=== PATIENT | male | born 1955 | race Caucasian/White ===

== ENCOUNTER 2016-10-03 03:48 | Emergency (ER) | payer OTHER, BC ==
[~2016-10-03] VITALS: Ht 167.6 cm; Wt 72.6 kg
--- NOTE | ~2016-10-03 | EKG ---
[address] [address] ELECTROCARDIOGRAM REPORT Name: JONAH UPTON Room #: [facility]..#: [id number] Admission: Attend Phys: Discharge: Date of : 53 Report #: [id number] THIS REPORT FOR: //name// [facility] ED Test Date: 2016-10-03 Test Time: 03:56:39 Pat Name: JONAH UPTON Department: Room: Gender: M Gastroenterologist: ANTONIO : 1955 Requested By: Sheree Banda Order Number: [id number] MD: Measurements Intervals [place] Rate: 57 P: 44 WV: 173 QRS: -55 QRSD: 148 T: 11 QT: 459 QTc: 447 Interpretive Statements Sinus rhythm Ventricular premature complex Right bundle branch block Compared to ECG 05/27/2016 14:00:31 No significant changes [email or web address] By: 5 5 Epiphany MD Marcie /EPI
[~2016-10-03 03:48] MED LIST: AMBIEN 10 MG TA10 MG PO; AMBIEN 5 MG TABL5 M1 PO; AMITRIPTYLINE H25 M2 PO; AMLODIPINE BESYL5 MG PO; BISACODYL SUPP10 MG RECTAL; CELEBREX 200 M200 M1 PO; COLACE100 MG PO; COUMADIN 2.5MG2.5 M1 PO; COUMADIN 4 MG TA4 M1 PO; COUMADIN 5 MG TA5 M1 PO; COUMADIN5 MG PO; COUMADIN6 MG PO; DILAUDID 2 MG TA2 MG; DILAUDID 4 MG TA4 M1 PO; ENOXAPARIN30 MG/0.1 SUBQ; ENOXAPARIN80 MG/0.1 SUBQ; HYDROCODONE-APA1 TA1 PO; KEPPRA 500 MG500 M1 PO; KEPPRA1000 MG PO; LEVETIRACETAM1000 MG PO; LIDODERM 5%1 PATC1 TRANSDERM; LIPITOR10 MG PO; MAG-AL PLUS SUS30 ML PO; MEVACOR 20 MG T20 MG PO; MIRALAX17 GM PO; NEURONTIN 300300 M1 PO; OXYCODONE HCL15 MG PO; OXYCODONE-APAP1 EAC6 PO; OXYCONTIN60 MG PO; PRAVACHOL40 MG PO; REGLAN 10 MG TA10 MG PO; SENOKOT-S1 TA1 PO; TRAZODONE HCL50 MG PO; TYLENOL325 MG PO; XANAX 0.25 MG0.25 MG; XANAX XR1 MG PO; XANAX1 MG PO
[2016-10-03] MEDS ORDERED: LIDOPIN28 GM (04:00)
[2016-10-03] MEDS ORDERED: SENNA8.6 MG PO (04:03)
[2016-10-03] MEDS ORDERED: FENTANYL 1100 MCG/HR TOP (04:06)
[2016-10-03] MEDS ORDERED: CELEXA20 MG PO (04:07)
[2016-10-03] MEDS ORDERED: PERCOCET 10-321 EAC1 (04:09)
[2016-10-03 04:12] LABS: ABSOLUTE NEUTROPHILS 4.1 thou/uL (1.4-8.2); BASOPHILS 0.8 % (0.0-2.0); EOSINOPHILS 2.5 % (0.0-3.0); HEMATOCRIT 38.3 % (42.0-52.0); HEMOGLOBIN 12.9 gm/dL (14.0-18.0); LYMPHOCYTES 34.4 % (24.0-44.0); MCH 28.8 pg (26.0-34.0); MCHC 33.8 g/dL (28.0-37.0); MCV 85.4 fL (80.0-100.0); MONOCYTES 7.1 % (1.0-8.0); PLATELET COUNT 208 thou/uL (150-400); POLYS 55.2 % (36.0-66.0); RBC 4.49 mil/uL (4.50-6.00); WBC 7.5 thou/uL (4.0-11.0)
[2016-10-03 04:15] LABS: MANUAL DIFF NO
[2016-10-03 04:25] LABS: APTT 30.1 Seconds (24.5-32.8); INR 2.1; PROTIME 21.3 Seconds (9.3-11.4)
[2016-10-03 04:38] LABS: ALBUMIN 3.8 g/dL (3.4-5.0); ALKALINE PHOSPHATASE 70 U/L (46-116); ANION GAP 9 mmol/L (7-16); BUN 21 mg/dL (7-18); CALCIUM 9.5 mg/dL (8.5-10.1); CHLORIDE 102 mmol/L (98-107); CO2 28 mmol/L (21-32); GLUCOSE 97 mg/dL (70-99); NT-PRO BRAIN NAT PEPTIDE 391 pg/mL (<300); POTASSIUM 4.1 mmol/L (3.5-5.1); SGOT 21 U/L (15-37); SGPT 17 U/L (30-65); SODIUM 139 mmol/L (136-145); TOTAL BILIRUBIN 0.5 mg/dL (<0.1-1.0); TOTAL PROTEIN 7.4 g/dL (6.4-8.2); TROPONIN-I < 0.04 ng/mL (<0.04-0.07)
== END 2016-10-03 05:32 ==
LOC: ER 03:48
PROVIDERS: Emergency Medicine
DX: R00.1 Bradycardia, unspecified (principal); Z86.73 Personal history of transient ischemic attack (TIA), and cerebral infarction without residual deficits; I10 Essential (primary) hypertension; F31.9 Bipolar disorder, unspecified; F41.9 Anxiety disorder, unspecified; Z95.2 Presence of prosthetic heart valve; F17.210 Nicotine dependence, cigarettes, uncomplicated

== ENCOUNTER 2016-11-28 16:25 | Inpatient (IN) | payer OTHER, BC ==
[~2016-11-28] VITALS: Ht 167.6 cm; Wt 69.9 kg
--- NOTE | ~2016-11-28 | 2DMMODE ---
[facility] [address] [place] [address] 2 D/M-MODE ECHOCARDIOGRAM Name: JONAH UPTON Room #: 463-P [facility] IN ..#: [id number] Admission: 11/28/16 Attend Phys: Rob Holcomb, Discharge: Date of : 53 Date of Service: 11/30/16 0733 Report #: [id number] THIS REPORT FOR: //name// APPROVED REPORT Study performed: 11/29/2016 12:01:29 EXAM: Comprehensive 2D, Doppler, and color-flow Echocardiogram Patient Location: Bedside Room #: 463 Blood Pressure: 141/75 mmHg HR: 64 bpm Rhythm: NSR Other Information Study Quality: Adequate Technically limited study due to chest wall deformity. Indications Mitral Valve Disease CVA/TIA Hypertension/HDD Echo Enhancing Agent Indication: Rule out Shunt Agent/Amount Used: Agitated Saline 7 cc 2D Dimensions LVEF(%): 68.93 (>50%) IVSd: 10.22 (7-11mm) LVOT Diam: 20.36 (18-24mm) LVDd: 59.29 mm PWd: 11.57 (7-11mm) LVDs: 36.00 (25-40mm) Aortic Root: 31.25 mm IVC: 16.00 mm Acreo's LVEF: 68.93 % Aortic Valve AoV Peak Darshan.: 1.25 m/s AO Peak Gr.: 6.20 mmHg LVOT Max P.81 mmHg LVOT Max V: 0.67 m/s LEANNE Vmax: 1.76 cm2 [facility] [address] [address] 2 D/M-MODE ECHOCARDIOGRAM Name: JOANH FAGAN Room #: 463-P [facility] SYSTEM#: [id number] Admission: 11/28/16 Attend Phys: Rob Holcomb, Discharge: Date of : 53 Date of Service: 11/30/16 0733 Report #: [id number] Mitral Valve MV Peak Gr.: 7.74 mmHg MV Mean Gr.: 2.38 mmHg E/A Ratio: 0.5 MV Decel. Time: 351.89 ms MV E Max Darshan.: 0.71 m/s MV A Darshan.: 1.38 m/s MV Max Darshan.: 1.39 m/s MV Mean Darshan.: 0.70 m/s MV VTI: 424.63 mm MV PHT: 102.05 ms IVRT: 184.54 ms Pulmonary Valve PV Peak Darshan.: 0.87 m/s PV Peak Gr.: 3.02 mmHg Tricuspid Valve TR Peak Darshan.: 2.96 m/s RAP Estimate: 5.00 mmHg TR Peak Gr.: 35.14 mmHg RVSP: 40.00 mmHg Left Ventricle Left ventricle is at the upper limits of normal. There is normal LV segmental wall motion. There is normal left ventricular wall thickness. The left ventricular systolic function is normal. LVEF is 55-60%. Unable to assess Right Ventricle The right ventricle is normal size. The right ventricular systolic function is normal. Atria The left atrium size is dilated. Interatrial septum is intact without evidence of ASD or PFO. The right atrium size is normal. Aortic Valve Aortic valve is calcified. No aortic regurgitation. There is no aortic valvular stenosis. Mitral Valve There is a Medtronic 33mm mechanical mitral valve prosthesis. Trace mitral regurgitation. No evidence of mitral valve stenosis. Tricuspid Valve The tricuspid valve is normal in structure. There is trace to mild tricuspid regurgitation. The right atrial pressure is estimated at [address] [place] [address] 2 D/M-MODE ECHOCARDIOGRAM Name: JONAH UPTON Room #: 463-P [facility] IN ..#: [id number] Admission: 11/28/16 Attend Phys: Rob Holcomb, Discharge: Date of : 53 Date of Service: 11/30/16 0733 Report #: [id number]. There is mild pulmonary hypertension. The estimated PAP was 40 mmHg. Pulmonic Valve The pulmonary valve is normal in structure. There is no pulmonic valvular regurgitation. Great Vessels The aortic root is normal in size. Ascending aorta is not well visualized. IVC is normal in size and collapses >50% with inspiration. Pericardium There is no pericardial effusion. <Conclusion> The left ventricular systolic function is normal. There is normal LV segmental wall motion. LVEF 55-60%. The left atrium size is dilated. No shunting by contrast bubble injection. Aortic vavle mildly calcified, not stenotic, no aortic regurgitation. There is a Medtronic 33mm mechanical mitral valve prosthesis. No evidence of mitral valve stenosis, trace mitral regurgitation. Pulmonary artery pressure of 40mmHg There is no pericardial effusion. <ELECTRONICALLY SIGNED> By: Filemon Freedman MD, FACC 11/30/16732 2 2 Filemon Freedman MD, FACC /INF
--- NOTE | ~2016-11-28 | EKG ---
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 : 1955 Requested By: Dagoberto Narvaez Order Number: [id number] MD: Jose Strauss Measurements Intervals [place] Rate: 67 P: 43 [place]: 57 QRS: -29 QRSD: 156 T: -1 QT: 439 QTc: 464 Interpretive Statements Sinus rhythm Right bundle branch block Anteroseptal infarct, age indeterminate Artifact in lead(s) I,II,III,aVR,aVL,V2 and baseline wander in lead(s) V2 Compared to ECG 10/03/2016 03:56:39 Electronically Signed On 11-29-2016 8:08:35 CDT by Jose Strauss [email or web address] <ELECTRONICALLY SIGNED> By: Jose Strauss MD 11/29/16 0808 44 44 Jose Strauss MD /EPI
--- NOTE | ~2016-11-28 | H ---
[facility] [place] [address] HISTORY AND PHYSICAL Name: JONAH UPTON Room #: 463-P [facility] IN M.R.#: [id number] Admission: 11/28/16 Attend Phys: Rob Holcomb MD Discharge: 11/30/16 Date of : 53 Report #: [id number] THIS REPORT FOR: //name// CC: Rob Holcomb DATE OF SERVICE: 11/29/2016 CHIEF COMPLAINT: Left-sided weakness. HISTORY OF PRESENT ILLNESS: The patient is a 61-year-old male with prior severe right-sided hemiplegia from a stroke who presented to the ER with some difficulty with using his left side at this time. He had also had some slurring of speech per the 's report. He usually uses a walker and he has been unable to ambulate with it. He is communicative this morning, says that he had a fall because he felt very weak on that left side. He is actually feeling much better now with return to his baseline of symptoms. PAST MEDICAL HISTORY: Significant for CVA with right-sided hemiplegia in 2005; prosthetic valve replacement in the ; prior seizure, last one in 2012; hypertension; insomnia; degenerative joint disease; bipolar disorder with anxiety; aphasia; multiple TIAs since then. MEDICATIONS: Include Ambien 10 mg at bedtime, Coumadin 4.5 mg a day, gabapentin 300 mg t.i.d., Lidoderm ointment, senna daily, fentanyl patch 25 mcg q. 3 days, Celexa 20 mg a day, Percocet 10/325 q. 4 p.r.n., alprazolam 0.5 mg b.i.d., levetiracetam 1000 mg b.i.d. ALLERGIES: No known drug allergies. SOCIAL HISTORY: He is a prior smoker, not current. No alcohol, no recreational drugs. He lives with his independently. REVIEW OF SYSTEMS: CONSTITUTIONAL: No fever or chills. HEENT: No headaches or visual changes. CHEST: No chest pain, tightness in the chest, shortness of breath, cough or sputum production. GASTROINTESTINAL: No nausea, vomiting, diarrhea or constipation. GENITOURINARY: No burning or frequency. EXTREMITIES: He has a chronic joint pain, nothing acute. No joint swelling. SKIN: No rashes or wounds. NEUROLOGIC: No visual changes. He does have an episode of left-sided weakness that seems to have resolved. Numbness was associated with that as well. PHYSICAL EXAMINATION: VITAL SIGNS: In the ER, his vital signs, blood pressure was 172/117. It has [address] [address] HISTORY AND PHYSICAL Name: JONAH UPTON Room #: 463-P [facility] IN M.R.#: [id number] Admission: 11/28/16 Attend Phys: Rob Holcomb MD Discharge: 11/30/16 Date of : 53 Report #: [id number] improved significantly since then. His pulse is 77. His respiratory rate is 13. His O2 saturation is 94% on room air. His weight 154 pounds. GENERAL: The patient is a very pleasant happy gentleman. He is in no distress this morning. He reports he feels back to normal. His mucous membranes are moist. NECK: Supple, without adenopathy, thyromegaly or bruits. CHEST: Clear to auscultation. CARDIOVASCULAR: Regular rhythm without murmur. ABDOMEN: Soft, nondistended, nontender, no masses. Bowel sounds are active. EXTREMITIES: There is no edema. He does have a brace that he uses on the right leg. He is not wearing it, currently in bed. He has previous right-sided weakness with 3/5 strength is equal and he is 5/5 in arm and leg. Sensory is equal on the left and decreased on the right. Pulses are intact bilaterally. SKIN: Turgor is intact. There are no wounds or bruising. DIAGNOSTIC DATA: EKG shows sinus rhythm, rate of 67, with right bundle branch block. No acute ST segment changes. LABORATORY DATA: On admission, sodium 144, potassium 3.3, chloride 101, bicarb 26, BUN 19, creatinine 1.2, glucose 93, troponin less than 0.04. BNP 355. INR is 4.2, WBCs 9.8, hemoglobin 12.6, hematocrit 36.7, platelet count 222, 74 segs, 16 lymphs. Urinalysis, specific gravity of less than 1.05, otherwise unremarkable. CT scan of the head shows chronic ischemic changes, no acute bleed, stroke protocol was performed. There is chronic left MCA infarct with perfusion changes there, and also some decreased blood flow along the left posterior temporal artery, inferior to that infarct. Chest x-ray shows no process. ASSESSMENT: Left-sided cerebrovascular accident with possible extension. The patient appears back to baseline neurologically. We will get neurology consultation. He is already on Coumadin with INR supratherapeutic at 4.2. We will defer any intervention to them. I think he would not be a candidate for anticoagulation, however. We will start PT and OT. Resume his home medications as listed above. <ELECTRONICALLY SIGNED> By: Rob Holcomb MD 12/01/16 0725 0723 2 Rob Holcomb MD /claire
--- NOTE | ~2016-11-28 | HC ---
[facility] [place] [address] CONSULTATION Name: JONAH UPTON Room #: 463-P [facility] IN M.R.#: [id number] Admission: 11/28/16 Attend Phys: Rob Holcomb MD Discharge: 11/30/16 Date of : 53 Report #: [id number] THIS REPORT FOR: //name// CC: Rob Holcomb HISTORY OF PRESENT ILLNESS: The patient is a 61-year-old white male previously known to me with a prior CVA with severe right-sided hemiparesis. He has had problems with a right total knee replacement for severe degenerative arthritis in May of 2015. He also had a right distal femur periprosthetic fracture in May of 2016 and underwent right femur ORIF. He was noted to have a prolonged stay at [facility] and eventually was able to return back to the home setting. He was getting around with a quad cane and an AFO although his was needing to assist him more and more. He recently had a new AFO made by [employer]. has been in a process of considering assisted living facility options for him. He was in the middle of this, then he had the onset of worsening left-sided weakness. MRI showed old bilateral left middle cerebral artery infarcts with old left cerebellar infarcts. He is noted to have worsening of his speech with some worsening of his right-sided weakness and decreased use of the left upper and left lower extremity compared to his premorbid. He has been noted to have an overall decrease in his functional abilities. We are consulted in rehabilitation medicine consultation. PAST MEDICAL HISTORY: Includes the prior CVA with right-sided hemiparesis 2005, prosthetic valve replacement in the 1989, prior seizure, last one in 2012, hypertension, insomnia, degenerative joint disease, bipolar disorder with anxiety, aphasia. MEDICATIONS: Please see the full medication listing. ALLERGIES: No known drug allergies. SOCIAL HISTORY: Prior smoker, not current. No alcohol. No recreational drugs. He lives with his in a house. This is a reverse ranch style. The notes that they are looking at assisted living facility options for the patient and that she will likely continue to stay in the raised ranch. The patient did not differ with this approach. Premorbidly, he had been utilizing his quad cane and the right AFO. REVIEW OF SYSTEMS: Complains of some increased weakness of the right side. He has some problems moving the left upper and lower extremity. Motions at his speech appears worse. No chest pain, shortness of breath, abdominal discomfort. He has some chronic joint pain, right knee, right lower extremity, which is not new and not acute. No skin rashes, no headache. He was noted to initially be severely hypertensive 172/117. PHYSICAL EXAMINATION: GENERAL: He is a pleasant 61-year-old white male in no obvious distress. [address] [address] CONSULTATION Name: JONAH UPTON Room #: 463-P [facility] IN M.R.#: [id number] Admission: 11/28/16 Attend Phys: Rob Holcomb MD Discharge: 11/30/16 Date of : 53 Report #: [id number] VITAL SIGNS: Temperature 97.4, pulse 64, respirations 18, blood pressure 141/75. NEUROLOGIC: He is alert. He is pleasant. He has obvious severe speech deficits with an expressive component, which appears more severe than a receptive component. Follows basic commands without difficulty. Appears to have some decreased nasolabial fold on the right. EOMs otherwise appeared full. He has the right upper and right lower extremity weakness with strength grade 3-3+/5 right upper extremity and 3-3+/5 right lower extremity. He has definite increased tone with several beats of clonus at the right ankle. He has a hint of a positive Gilbert's. Left upper extremity strength is probably a grade 4 to 4-/5. Left lower extremity is 4-/5. He does have the old right knee incision, which is well healed and also the incisions over his right lateral thigh. There is no focal calf swelling. Functionally, he is min assist with sit to stand. Gait 18 feet min assist with a front-wheeled walker. ASSESSMENT: A 61-year-old right-handed white male with the following problem list: 1. Left-sided CVA with clinical evidence of extension. He is noted to have worsening movement of the right upper and right lower extremity as well as some involvement of the left upper and left lower extremity. Speech is noted to be worse. He has had a functional decline from his premorbid status. 2. Right total knee replacement, May 24, right femur fracture May 25, prior CVA with right hemiplegia 2005, prosthesis valve replacement in , history of bipolar disorder, premorbid aphasia, which is now worse. PLAN: We are considering the patient for an acute in-hospital inpatient rehabilitation stay. Discussed with the patient's . We will be glad to follow along with you regarding his rehab therapy needs. <ELECTRONICALLY SIGNED> By: Hebert Warren MD 12/02/16 1556 1530 0133 Hebert Warren MD /nt
[~2016-11-28 16:25] MED LIST changes: +CELEXA20 MG PO; +FENTANYL 1100 MCG/HR TOP; +LIDOPIN28 GM; +PERCOCET 10-321 EAC1; +SENNA8.6 MG PO
[2016-11-28 16:26] VITALS: BP 172/117
[2016-11-28 16:51] LABS: POC CA IONIZED 4.9 mg/dL (4.5-5.3); POC CREATININE 0.9 mg/dL (0.6-1.3); POC HEMOGLOBIN 13.6 g/dL (14.0-18.0); POC POTASSIUM 3.3 mmol/L (3.5-5.1)
[2016-11-28 16:53] LABS: ABSOLUTE NEUTROPHILS 7.3 thou/uL (1.4-8.2); BASOPHILS 0.6 % (0.0-2.0); EOSINOPHILS 1.2 % (0.0-3.0); HEMATOCRIT 37.6 % (42.0-52.0); HEMOGLOBIN 12.6 gm/dL (14.0-18.0); LYMPHOCYTES 16.5 % (24.0-44.0); MANUAL DIFF NO; MCH 29.9 pg (26.0-34.0); MCHC 33.6 g/dL (28.0-37.0); MCV 89.1 fL (80.0-100.0); PLATELET COUNT 222 thou/uL (150-400); POLYS 74.7 % (36.0-66.0); RBC 4.22 mil/uL (4.50-6.00); RDW 15.3 % (10.5-14.5); WBC 9.8 thou/uL (4.0-11.0)
[2016-11-28 17:00] LABS: ANION GAP 8 mmol/L (7-16); BUN 16 mg/dL (7-18); CALCIUM 9.8 mg/dL (8.5-10.1); CHLORIDE 102 mmol/L (98-107); CO2 29 mmol/L (21-32); CREATININE 1.1 mg/dL (0.7-1.3); GLUCOSE 91 mg/dL (74-106); POTASSIUM 3.4 mmol/L (3.5-5.1); SODIUM 139 mmol/L (136-145)
[2016-11-28 17:13] LABS: NT-PRO BRAIN NAT PEPTIDE 355 pg/mL (<300); TROPONIN-I < 0.04 ng/mL (<0.04-0.07)
[2016-11-28 17:18] LABS: APTT 40.8 Seconds (24.5-32.8); INR 4.2; PROTIME 44.1 Seconds (9.3-11.4)
[2016-11-28 18:33] LABS: URINE BILIRUBIN NEGATIVE (Negative); URINE BLOOD NEGATIVE (Negative); URINE COLOR YELLOW; URINE GLUCOSE-RANDOM* NEGATIVE (Negative); URINE KETONES NEGATIVE (Negative); URINE NITRITE NEGATIVE (Negative); URINE PROTEIN (DIPSTICK) NEGATIVE (Negative); URINE SPECIFIC GRAVITY <= 1.005 (1.003-1.035); URINE UROBILINOGEN 0.2 E.U./dl (0.2-1.0)
[2016-11-28 18:52] VITALS: BP 166/89
[2016-11-28 19:54] VITALS: BP 156/87
[2016-11-28 23:28] VITALS: BP 174/76
[2016-11-29 03:47] VITALS: BP 170/70
[2016-11-29 07:29] LABS: CHOLESTEROL 231 mg/dL (<200); HDL CHOLESTEROL 61 mg/dL (>40); LDL CHOLESTEROL 158 mg/dL (<100); TC:HDL 3.8 Ratio (Not establshd); TRIGLYCERIDE 62 mg/dL (<150); VLDL 12 mg/dL (<40)
[2016-11-29 07:53] VITALS: BP 141/75
[2016-11-29 08:09] LABS: TSH 0.527 uIU/mL (0.358-3.740)
[2016-11-29 16:08] VITALS: BP 120/73
[2016-11-29 16:13] LABS: FREE T4 1.43 ng/dL (0.82-1.77)
[2016-11-29 20:12] VITALS: BP 122/77
[2016-11-30 04:13] VITALS: BP 136/72
[2016-11-30 05:10] LABS: GLYCOHEMOGLOBIN (HGB A1C) 5.2 % (4.8-5.6)
[2016-11-30 06:49] LABS: INR 3.7; PROTIME 38.9 Seconds (9.3-11.4)
[2016-11-30 07:29] VITALS: BP 136/72
[2016-11-30] MEDS ORDERED: ASPIR 8181 MG PO (07:42)
[2016-11-30] MEDS ORDERED: ATORVASTATIN CA20 MG PO (07:43)
[2016-11-30 07:45] VITALS: BP 118/75
[2016-11-30 11:47] VITALS: BP 155/90
[2016-12-01 13:13] LABS: ALPHA TOCOPHEROL 8.4 mg/L (5.3-17.5)
== END 2016-11-30 14:23 | DRG 66 ==
LOC: ER 16:25 → EROBS 18:13 → 4W 18:13
PROVIDERS: Nurse Practitioner; Psychiatry & Neurology Neurology
DX: I63.9 Cerebral infarction, unspecified (principal); I10 Essential (primary) hypertension; F31.9 Bipolar disorder, unspecified; G47.00 Insomnia, unspecified; M19.90 Unspecified osteoarthritis, unspecified site; G62.9 Polyneuropathy, unspecified; F41.9 Anxiety disorder, unspecified; Z96.651 Presence of right artificial knee joint; E78.5 Hyperlipidemia, unspecified; Z95.2 Presence of prosthetic heart valve; Z79.82 Long term (current) use of aspirin; Z79.899 Other long term (current) drug therapy; Z87.891 Personal history of nicotine dependence
CPT/HCPCS: 10047

== ENCOUNTER 2016-11-30 12:37 | Inpatient (IN) | payer OTHER, BC ==
[~2016-11-30] VITALS: Ht 152.4 cm; Wt 69.1 kg
--- NOTE | ~2016-11-30 | HC ---
[facility] [place] [address] CONSULTATION Name: JONAH UPTON Room #: 510-P [facility] IN .R.#: [id number] Admission: 11/30/16 Attend Phys: Hebert Warren MD Discharge: Date of : 53 Report #: [id number] THIS REPORT FOR: //name// CC: Hebert Holcomb DATE OF SERVICE: 12/04/2016 NEUROBEHAVIORAL STATUS EXAM ATTENDING PHYSICIAN: Hebert Warren M.D. SKYDIVING INSTRUCTOR: Rob Li, PhD CLINICAL PRESENTATION: The patient is a 61-year-old male admitted to the [facility] rehabilitation unit for a comprehensive inpatient rehabilitation program to improve functional mobility, activities of daily living and self-care and mental status secondary to deficits from a cerebrovascular accident. He was initially seen for neurobehavioral status exam in 2013 following a stroke with severe right hemiparesis. His medical condition includes a right total knee replacement for severe degenerative arthritis in 05/2015. Recent MRI reveals old bilateral left middle cerebral artery infarction with old left cerebellar infarction. He also had a sudden worsening with right hemiparesis and left sided weakness leading to his current hospitalization which suggests an extension of his stroke. His assessment on admission to the rehabilitation unit includes left sided CVA with clinical evidence of extension, late affect CVA, right upper and right lower extremity hemiparesis, left sided weakness; significant aphasia expressive more than receptive; prior right total knee replacements with subsequent right femur fracture; prior CVA with right hemiplegia in 2005 and a history of bipolar disorder. A complete description of his medical condition, history and medications can be found in his medical record. Neuropsychological consultation was requested to provide assistance in the assessment of cognitive and emotional status and to provide recommendations and services. Prior to this most recent hospitalization, he was living independently with his in their home. 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 He has 3 stepchildren. As indicated, a history of bipolar 1 disorder is reported. TECHNIQUES UTILIZED: Clinical interview, review of medical records, staff consultation and behavioral observation, mini mental status exam [address] standard [address] [address] CONSULTATION Name: JONAH UPTON Room #: 510-P [facility] IN ..#: [id number] Admission: 11/30/16 Attend Phys: Hebert Warren MD Discharge: Date of : 53 Report #: [id number] EXAMINATION FINDINGS: The patient was alert and cooperative with the assessment. He was able to accurately indicate the reason for his hospitalization. The patient does use several compensatory strategies to help compensate for a severe expressive aphasia. Auditory comprehension is much better maintained. He indicates difficulty with sleep, has improved with medication. Additional symptoms include subjective anxiety and a mild depression. His pain appears [id number] in the way in which he describes the procedure that was done to repair his leg and current hardware issues that he ascribes to as contributing to severe pain. The patient is oriented to person, place and time. It is difficult to assess auditory memory because of severe aphasia. Visual spatial constructive tasks could not be assessed because of the right hemiparesis. He does not indicate symptoms of dez or flight of ideas. Primary emotional status is described as anxiety as he is worried about his well being. A mild degree of depression is also reported. DIAGNOSTIC IMPRESSION: 1. Major neurocognitive disorder due to vascular disease, without behavior disorder - extent to be determined, likely in the moderate range. 2. Bipolar 1 disorder by history - currently stable. RECOMMENDATIONS: The patient will likely benefit from continued encouragement to utilize compensatory strategies for deficits in expression and communication. He will need 24-hour care to provide for adequate nutrition and medication management. Social recreation will continue to be of benefit as he will need to verbally express himself more often. Social skills appear good. He is independent and resilient and does take initiative in trying to improve his degree of communication with others. The patient has a communication notebook that he is using. I attempted to get a hold of his but she was unavailable at the time of my call. I will continue to follow up in regard to evidence of deficits that she might notice which are not evident out of the brief mental status exam. Thank you very much for allowing me to provide the consultation on this patient. By: [id number] Rob Li, PhD /nt
--- NOTE | ~2016-11-30 | PLAN ---
[facility] [place] [address] REHAB UNIT PLAN OF CARE Name: JONAH UPTON Room #: 510-P ADM IN M.R.#: [id number] Admission: 11/30/16 Attend Phys: Hebert Warren MD Discharge: Date of : 53 Report #: [id number] THIS REPORT FOR: //name// CC: Hebert Holcomb HISTORY OF PRESENT ILLNESS: The patient is seen back today in followup. He is in no distress. Last recorded temperature is 98.1, pulse 58, respirations 18, blood pressure 145/79. He is in no distress. No focal calf swelling. He has the increased tone of the right upper and right lower extremity with his old stroke. He feels like he is moving that left side a little bit better than on admission. His transfers are min assist. Gait is contact guard 55 feet with a quad cane and the right AFO. In occupational therapy, lower body dressing is min assist. In speech therapy, he has mild to moderate comprehensive deficits. He is on a mechanical soft diet with thin liquids. He does have moderate to severe expressive deficits. ASSESSMENT: 1. Left-sided cerebrovascular accident with clinical evidence of extension. 2. Late affect cerebrovascular accident. 3. Right upper and right lower extremity hemiparesis. 4. Left-sided weakness that appears to be improving. 5. Significant aphasia expressive more than receptive. 6. Prior right total knee replacement with subsequent right femur fracture. 7. Prior CVA with right hemiplegia, 2005 8. History of bipolar disorder. PLAN: The overall plan of care is based on the preadmission screen, post-admission physician evaluation and information garnered from therapy assessments. 1. Estimated length of stay is probably at least 10 days to 2 weeks and likely longer as warranted. 2. Medical prognosis is reasonably good. 3. Anticipated interventions includes the interdisciplinary acute inpatient rehabilitation program with PT, OT, speech rehab nursing assisting regarding medication management, skin care prophylaxis, bowel and bladder issues and nursing education. The travel consultant physicians will continue to follow. 4. Anticipated functional outcomes would be for the patient to hopefully become independent with transfers, mobility and ADLs and improvement with communication as well as improved movement of that left side as well as his right side. The goal is to become maximally independent with AFO and the quad cane versus lakisha walker. 5. Discharge destination at this point is to an assisted living facility, although he may return back home with his . We will need to see how he does. 6. Expected therapy by discipline includes PT, OT and speech 1 hour per day [address] [address] REHAB UNIT PLAN OF CARE Name: JONAH UPTON Room #: 510-P [facility] IN M.R.#: [id number] Admission: 11/30/16 Attend Phys: Hebert Warren MD Discharge: Date of : 53 Report #: [id number] each five days a week throughout the duration of the acute inpatient rehabilitation stay. By: [id number] Hebert Warren MD /claire
--- NOTE | ~2016-11-30 | H ---
[facility] [place] [address] HISTORY AND PHYSICAL Name: JONAH UPTON Room #: 510-P ADM IN M.R.#: [id number] Admission: 11/30/16 Attend Phys: Hebert Warren MD Discharge: Date of : 53 Report #: [id number] THIS REPORT FOR: //name// CC: Hebert Holcomb MD DATE OF SERVICE: 12/01/2016 HISTORY OF PRESENT ILLNESS: The patient is a 61-year-old white male previously known to me with a prior CVA with severe right hemiparesis. He has had problems with the right total knee replacement for severe degenerative arthritis in May of 2015. He also had a right distal femur periprostatic fracture in May of 2016 and underwent right femur ORIF. He was eventually able to return back home. He does get around with a quad cane and an AFO although his was needing to assisting him more and more. He recently had a new AFO made by [employer]. has been in the process of considering assisted living options for him. While she was in the middle of this, he then had the onset of worsening right-sided weakness and some left-sided weakness as well. MRI showed old bilateral left middle cerebral artery infarcts with old left cerebellar infarcts. He is noted to have worsening of his speech with some worsening of his right-sided weakness and decreased use of the left upper and left lower extremity compared to his premorbid status. He is noted to have left-sided CVA with clinical evidence of extension and later effect CVA. With the significant functional decline from his premorbid status, he has now been admitted for acute in-hospital inpatient rehabilitation. PAST MEDICAL HISTORY: Includes the prior CVA with right-sided hemiparesis in 2005, prosthetic valve replacement in the 1989, prior seizure, last one in 2012, hypertension, insomnia, degenerative joint disease, bipolar disorder with anxiety, and aphasia. MEDICATIONS: Please see the full medication listing. ALLERGIES: No known drug allergies. SOCIAL HISTORY: Lives with his in a house reverse ranch style. notes that they are looking at assisted living facility options for the patient and he will likely continue to stay at the [facility]. Premorbidly, he had been utilizing his quad cane and the right AFO. HABITS: Prior smoker, not current. No history of alcohol. No recreational drug abuse. REVIEW OF SYSTEMS: He has increased weakness of the right side. He also notes some problems moving the left upper and left lower extremity. He indicates that his speech is worse. He did not note any complaints of chest pain, shortness of [facility] [address] [place] [address] HISTORY AND PHYSICAL Name: JONAH UPTON Room #: 510-P [facility] IN ..#: [id number] Admission: 11/30/16 Attend Phys: Hebert Warren MD Discharge: Date of : 53 Report #: [id number] breath or abdominal discomfort. He has some chronic joint pain, right knee and right lower extremity. No complaints of headache verbalized. No bowel or bladder changes. PHYSICAL EXAMINATION: GENERAL: A 61-year-old white male in no obvious distress. VITAL SIGNS: Last recorded temperature 36.6, pulse 61, respirations 18, blood pressure 151/84. The patient was seen earlier this morning. He was a little groggy, but pleasant. HEENT: Appeared to be benign. Faces were symmetric. CHEST: Sounded clear to auscultation. CARDIOVASCULAR: Regular rate and rhythm. ABDOMEN: Bowel sounds positive, nontender. GENITOURINARY AND RECTAL: Deferred. NEUROLOGIC: He has the obvious severe speech deficits with an expressive component that appears more severe than the receptive component. Follows basic commands without difficulty. He has a decreased nasolabial fold on the right. EOMs otherwise appeared full. He has right upper extremity and right lower extremity weakness with strength grade 3-3+/5 right upper extremity and 3+/5 right lower extremity. He has definite increased tone with several beats of clonus at the right ankle. He continues to have a hint of positive Gilbert's. Left upper extremity strength is a grade 4 to 4-, left lower extremity is 4 to 4-. He has the old right knee incision well healed. No focal calf swelling. He is needing assistance with functional mobility and ADLs and has been transferring with min assist. Bed mobility has been mod assist. He had ambulated a short distance with min assist. ASSESSMENT: A 61-year-old white male with the following problem list: 1. Left-sided cerebrovascular accident with clinical evidence of extension. 2. Late effects cerebrovascular accident. 3. Right upper and right lower extremity hemiparesis. 4. Left-sided weakness that appears to be improving. 5. Significant aphasia. Expressive more than receptive. 6. Prior right total knee replacements with subsequent right femur fracture. 7. Prior cerebrovascular accident with right hemiplegia in 2005. 8. History of bipolar disorder. PLAN: The patient is admitted for acute in-hospital inpatient rehabilitation. From a postadmission physician evaluation perspective, there are no relevant changes since the preadmission screening. Please see the above review of prior and current medical and functional conditions and comorbidities. Please see the patient's previous and current functional status. As far as risk of complications, the patient has multiple medical comorbidities as noted above. Initial plan of care involves the interdisciplinary acute inpatient rehabilitation program with the goal of maximizing the patient's functional independence, so that he can hopefully return back to his prior living [facility] [address] [place] [address] HISTORY AND PHYSICAL Name: JONAH UPTON Room #: 510-P ADM IN M.R.#: [id number] Admission: 11/30/16 Attend Phys: Hebert Warren MD Discharge: Date of : 53 Report #: [id number] situation. Prognosis is reasonably good with estimated length of stay probably at least 10 days to 2 weeks and likely significantly longer depending upon his functional progress. Measurable functional goals would be for him to get back to ambulating with the AFO and the quad cane. He may need a lakisha cane. We will need to see how he does. Potential barriers would include his multiple medical comorbidities and decreased functional status. The patient meets diagnostic criteria for an acute in-hospital inpatient rehabilitation stay. He meets medical necessity criteria. He does have the tolerance for an acute rehab level of care and has appropriate discharge goals back to the home setting. The patient's medications were individually reconciled upon admission. This included his medications, [id number], supplements, etc. <ELECTRONICALLY SIGNED> By: Hebert Warren MD 12/02/16 1556 [id number] Hebert Warren MD /nt
[~2016-11-30 12:37] MED LIST changes: +ASPIR 8181 MG PO; +ATORVASTATIN CA20 MG PO
[2016-11-30 17:00] VITALS: BP 132/75
[2016-12-01 04:45] LABS: HEMATOCRIT 37.9 % (42.0-52.0); HEMOGLOBIN 12.8 gm/dL (14.0-18.0); MCH 30.1 pg (26.0-34.0); MCHC 33.8 g/dL (28.0-37.0); RBC 4.25 mil/uL (4.50-6.00); RDW 15.1 % (10.5-14.5); WBC 6.8 thou/uL (4.0-11.0)
[2016-12-01 04:52] LABS: CALCIUM 8.8 mg/dL (8.5-10.1); CREATININE 0.9 mg/dL (0.7-1.3); POTASSIUM 3.6 mmol/L (3.5-5.1)
[2016-12-01 04:58] LABS: PROTIME 21.4 Seconds (9.3-11.4)
[2016-12-01 05:23] LABS: INR 2.1
[2016-12-01 06:22] VITALS: BP 151/84
[2016-12-01 16:00] VITALS: BP 140/86
[2016-12-02 04:32] VITALS: BP 145/79
[2016-12-03 05:54] VITALS: BP 123/77
[2016-12-03 16:05] VITALS: BP 132/82
[2016-12-04 05:21] VITALS: BP 124/79
[2016-12-04 16:10] VITALS: BP 133/69
[2016-12-05 05:54] VITALS: BP 140/75
[2016-12-05 15:23] VITALS: BP 137/66
[2016-12-06 04:58] VITALS: BP 141/76
[2016-12-06 08:00] VITALS: BP 137/75
[2016-12-06 15:30] VITALS: BP 125/86
[2016-12-06 16:47] LABS: INR 1.1; PROTIME 11.6 Seconds (9.3-11.4)
[2016-12-07 04:10] VITALS: BP 114/65
[2016-12-07 16:00] VITALS: BP 122/73
[2016-12-08 04:10] VITALS: BP 133/78
[2016-12-08 11:22] VITALS: BP 147/101
[2016-12-08 16:00] VITALS: BP 119/74
[2016-12-09 05:49] VITALS: BP 116/74
[2016-12-09 09:21] VITALS: BP 125/78
[2016-12-09 16:00] VITALS: BP 134/74
[2016-12-10 03:42] VITALS: BP 130/71
[2016-12-10 16:00] VITALS: BP 103/63
[2016-12-11 05:08] VITALS: BP 123/69
[2016-12-11 14:11] LABS: INR 1.3; PROTIME 13.1 Seconds (9.3-11.4)
[2016-12-11 16:00] VITALS: BP 111/61
[2016-12-12 05:31] VITALS: BP 112/70
[2016-12-12 05:52] LABS: INR 1.4; PROTIME 14.7 Seconds (9.3-11.4)
[2016-12-13 04:41] LABS: INR 1.6
[2016-12-13 05:19] VITALS: BP 125/69
[2016-12-13 16:00] VITALS: BP 101/59
[2016-12-13 16:43] VITALS: BP 125/69
[2016-12-14 05:19] LABS: INR 1.8; PROTIME 19.1 Seconds (9.3-11.4)
[2016-12-14 05:34] VITALS: BP 113/71
[2016-12-14 09:59] VITALS: BP 102/77
[2016-12-14 13:26] VITALS: BP 125/69
[2016-12-14] MEDS ORDERED: COUMADIN 5 MG TA5 M1 PO (13:33)
== END 2016-12-14 15:04 | disposition home health service (06) | DRG 65 ==
PROVIDERS: Family Medicine; Internal Medicine; Physical Medicine & Rehabilitation
DX: I63.9 Cerebral infarction, unspecified (principal); G81.91 Hemiplegia, unspecified affecting right dominant side; R47.01 Aphasia; Z96.651 Presence of right artificial knee joint; F31.9 Bipolar disorder, unspecified; F01.50 Vascular dementia, unspecified severity, without behavioral disturbance, psychotic disturbance, mood disturbance, and anxiety; I10 Essential (primary) hypertension; F41.9 Anxiety disorder, unspecified; E78.5 Hyperlipidemia, unspecified; Z95.2 Presence of prosthetic heart valve; Z87.891 Personal history of nicotine dependence
CPT/HCPCS: 10112

== ENCOUNTER 2017-01-12 15:21 | Inpatient (IN) | payer OTHER, BC ==
[~2017-01-12] VITALS: Ht 167.6 cm; Wt 73.5 kg
[2017-01-12 15:22] VITALS: BP 152/93
[2017-01-12 15:55] LABS: ABSOLUTE NEUTROPHILS 10.6 thou/uL (1.4-8.2); BASOPHILS 0.5 % (0.0-2.0); EOSINOPHILS 0.7 % (0.0-3.0); HEMATOCRIT 38.9 % (42.0-52.0); LYMPHOCYTES 11.1 % (24.0-44.0); MCH 30.1 pg (26.0-34.0); MCHC 33.5 g/dL (28.0-37.0); MONOCYTES 5.6 % (1.0-8.0); PLATELET COUNT 312 thou/uL (150-400); POLYS 82.1 % (36.0-66.0); RBC 4.32 mil/uL (4.50-6.00); RDW 14.3 % (10.5-14.5)
[2017-01-12 15:56] LABS: MANUAL DIFF NO
[2017-01-12 16:08] LABS: ANION GAP 9 mmol/L (7-16); BUN 13 mg/dL (7-18); CALCIUM 10.1 mg/dL (8.5-10.1); CHLORIDE 103 mmol/L (98-107); CO2 29 mmol/L (21-32); GLUCOSE 101 mg/dL (74-106); POTASSIUM 3.7 mmol/L (3.5-5.1); SODIUM 141 mmol/L (136-145)
[2017-01-12 16:10] LABS: APTT 43.4 Seconds (24.5-32.8); INR 3.7; PROTIME 37.2 Seconds (9.3-11.4)
[2017-01-12 16:15] LABS: ALBUMIN 4.6 g/dL (3.4-5.0); ALKALINE PHOSPHATASE 70 U/L (46-116); SGOT 38 U/L (15-37); SGPT 21 U/L (30-65); TOTAL BILIRUBIN 0.8 mg/dL (<0.1-1.0); TOTAL PROTEIN 8.8 g/dL (6.4-8.2); TROPONIN-I < 0.04 ng/mL (<0.04-0.07)
[2017-01-12 16:19] LABS: URINE BILIRUBIN NEGATIVE (Negative); URINE BLOOD NEGATIVE (Negative); URINE COLOR YELLOW; URINE GLUCOSE-RANDOM* NEGATIVE (Negative); URINE KETONES NEGATIVE (Negative); URINE LEUKOCYTES-REFLEX NEGATIVE (Negative); URINE PROTEIN (DIPSTICK) NEGATIVE (Negative); URINE SPECIFIC GRAVITY 1.015 (1.003-1.035); URINE UROBILINOGEN 0.2 E.U./dl (0.2-1.0)
[2017-01-12 18:20] VITALS: BP 167/88
[2017-01-12 18:46] VITALS: BP 153/81
[2017-01-12 20:00] VITALS: BP 187/89
[2017-01-12] MEDS ORDERED: ZANAFLEX4 MG PO (20:30)
[2017-01-13] VITALS (7 sets, daily range): BP systolic 77–143; BP diastolic 42–81
[2017-01-14 02:42] VITALS: BP 113/61
[2017-01-14 07:33] VITALS: BP 115/56
[2017-01-14 15:30] VITALS: BP 142/83
[2017-01-14 19:44] VITALS: BP 113/66
[2017-01-14 19:47] VITALS: BP 130/53
[2017-01-15 03:31] LABS: ABSOLUTE NEUTROPHILS 4.3 thou/uL (1.4-8.2); BASOPHILS 0.8 % (0.0-2.0); CALCIUM 8.7 mg/dL (8.5-10.1); CREATININE 0.8 mg/dL (0.7-1.3); EOSINOPHILS 3.7 % (0.0-3.0); HEMATOCRIT 32.5 % (42.0-52.0); HEMOGLOBIN 11.1 gm/dL (14.0-18.0); LYMPHOCYTES 27.9 % (24.0-44.0); MCH 30.4 pg (26.0-34.0); MCHC 34.1 g/dL (28.0-37.0); MCV 89.2 fL (80.0-100.0); MONOCYTES 6.8 % (1.0-8.0); PLATELET COUNT 262 thou/uL (150-400); POLYS 60.8 % (36.0-66.0); POTASSIUM 3.9 mmol/L (3.5-5.1); RBC 3.64 mil/uL (4.50-6.00); RDW 13.7 % (10.5-14.5)
[2017-01-15 03:37] LABS: MANUAL DIFF NO
[2017-01-15 03:38] LABS: INR 1.8; PROTIME 18.7 Seconds (9.3-11.4)
[2017-01-15 04:58] VITALS: BP 144/77
[2017-01-15 08:00] VITALS: BP 169/77
[2017-01-15 16:00] VITALS: BP 145/80
[2017-01-15 20:25] VITALS: BP 157/79
[2017-01-16 03:55] VITALS: BP 145/82
[2017-01-16 06:32] LABS: ABSOLUTE NEUTROPHILS 5.1 thou/uL (1.4-8.2); EOSINOPHILS 3.4 % (0.0-3.0); HEMATOCRIT 32.9 % (42.0-52.0); HEMOGLOBIN 10.9 gm/dL (14.0-18.0); LYMPHOCYTES 27.9 % (24.0-44.0); MCHC 33.2 g/dL (28.0-37.0); MCV 90.2 fL (80.0-100.0); MONOCYTES 6.2 % (1.0-8.0); POLYS 61.5 % (36.0-66.0); RBC 3.65 mil/uL (4.50-6.00)
[2017-01-16 06:36] LABS: MANUAL DIFF NO
[2017-01-16 06:39] LABS: CREATININE 0.8 mg/dL (0.7-1.3); POTASSIUM 4.1 mmol/L (3.5-5.1)
[2017-01-16 07:59] VITALS: BP 136/64
[2017-01-16 08:00] LABS: PLATELET COUNT 206 thou/uL (150-400)
[2017-01-16 12:58] VITALS: BP 136/64
== END 2017-01-16 12:58 | DRG 57 ==
LOC: ER 15:21 → EROBS 17:13 → 3N 17:13
PROVIDERS: Internal Medicine Geriatric Medicine; Physician Assistant
DX: I69.351 Hemiplegia and hemiparesis following cerebral infarction affecting right dominant side (principal); D68.9 Coagulation defect, unspecified; R53.1 Weakness; I10 Essential (primary) hypertension; F31.9 Bipolar disorder, unspecified; F41.9 Anxiety disorder, unspecified; I69.320 Aphasia following cerebral infarction; D72.829 Elevated white blood cell count, unspecified; Z96.651 Presence of right artificial knee joint; R47.1 Dysarthria and anarthria; E78.5 Hyperlipidemia, unspecified; I99.9 Unspecified disorder of circulatory system; G89.4 Chronic pain syndrome; Z95.2 Presence of prosthetic heart valve; Z87.891 Personal history of nicotine dependence; Z79.899 Other long term (current) drug therapy; Z79.82 Long term (current) use of aspirin
CPT/HCPCS: 10795

== ENCOUNTER 2017-06-28 15:41 | Inpatient (IN) | payer OTHER, BC ==
[~2017-06-28] VITALS: Ht 170.2 cm; Wt 65.8 kg
--- NOTE | ~2017-06-28 | EKG ---
[address] [place] [address] ELECTROCARDIOGRAM REPORT Name: JONAH UPTON Room #: 427-P ADM IN M.R.#: [id number] Admission: 06/28/17 Attend Phys: Rob Holcomb MD Discharge: Date of : 53 Report #: [id number] THIS REPORT FOR: //name// [facility] ED Test Date: 2017-06-28 Test Time: 15:41:29 Pat Name: JONAH UPTON Department: Room: [facility] Gender: M Senior Support Engineer: SHIRA : 1955 Requested By: Elpidio Bradford Order Number: [id number] MD: Filemon Freedman Measurements Intervals Luther Rate: 62 P: 38 NH: 171 QRS: -31 QRSD: 160 T: 34 QT: 429 QTc: 436 Interpretive Statements Sinus rhythm Ventricular premature complex Right bundle branch block Compared to ECG 11/28/2016 16:45:28 No significant change was Electronically Signed On 06-29-2017 7:58:14 VOCATIONAL REHABILITATION SUPERVISOR by Filemon Freedman [email or web address] <ELECTRONICALLY SIGNED> By: Filemon Freedman MD, [facility] 06/29/17 0758 1541 1541 Filemon Freedman MD, FAC /EPI
--- NOTE | ~2017-06-28 | HC ---
[facility] [place] [address] CONSULTATION Name: JONAH UPTON Room #: 427-P [facility] IN ..#: [id number] Admission: 06/28/17 Attend Phys: Rob Holcomb MD Discharge: 06/30/17 Date of : 53 Report #: [id number] THIS REPORT FOR: //name// CC: Rob Holcomb DATE OF SERVICE: 06/29/2017 HISTORY OF PRESENT ILLNESS: This is a 62-year-old male patient who was evaluated by me for stroke. This patient has huge records in the computer and I reviewed part of it. He has been seen by numerous neurologists which include Dr. Oakes, Dr. Dewey, Dr. Montelongo and I had se kaveh seen this patient once in 2013. The patient does not provide any history because he is aphasic. It looks like he had a valve replaced long time ago. Then, in 2005, he had a massive stroke that affected the right side of the body and speech. Since then, he had strokes on and off. Sometimes he has been admitted with stroke-like symptom, but no stroke was found. His CT scan shows numerous strokes and last MRI did not show any acute stroke, but showed multiple chronic stuff. He is on Coumadin and his INR is difficult to manage. He apparently has some increased weakness on the right side, but that is difficult to tell because we do not have a good baseline. REVIEW OF SYSTEMS: Indicate he also had a history of seizure, but has not had seizure for a long period of time, estimate a few years. He has a history of stroke. He is very debilitated. His INR was recently found to be high and then they readjusted it and it came out to be 2.3. He has taken multiple psychotropic medications. This was a relevant 14-point review of system. PAST MEDICAL HISTORY: Positive for stroke. FAMILY HISTORY: Negative for early age stroke. SOCIAL HISTORY: Used to smoke, but does not drink any alcohol. PHYSICAL EXAMINATION: Indicate he is alert. He cannot tell me what month it is. His speech does look slurred. His memory and fund of knowledge is diminished. Cranial nerve examinations 2-12 indicate right facial weakness, I cannot tell about hemianopsia. He has a spastic weakness of the right upper and right lower extremity. He does have a replaced valve. He does not have any respiratory difficulty. He is otherwise well-developed individual. His last blood pressure is 121/74, respiration is 18, pulse is 48, temperature is 97.5. LABORATORY DATA: Indicate last INR was 2.3. IMPRESSION: 1. Numerous cerebrovascular accident in the brain, which appear to be old on [address] [address] CONSULTATION Name: JONAH UPTON Room #: 427-P [facility] IN M.R.#: [id number] Admission: 06/28/17 Attend Phys: Rob Holcomb MD Discharge: 06/30/17 Date of : 53 Report #: [id number] the CAT scan. 2. Fluctuating INR with warfarin. RECOMMENDATIONS: 1. We will get the MRI of the brain done. 2. You may consider alternate anticoagulation in conjunction with Cardiology. 3. I will also get an EEG done because of history of seizures. 4. Botox may be considered in this patient as an outpatient because of spasticity. More than 50 minutes of time was spent taking care of this patient today and majority of the time was spent initially counseling the patient, but since the patient does not understand the things, counseling the patient's and coordinating his care. Thank you very much for this referral. <ELECTRONICALLY SIGNED> By: Deejay Ji MD 07/05/17 0943 [id number] [id number] Deejay Ji MD /nt
--- NOTE | ~2017-06-28 | EEG ---
[facility] [place] [address] ELECTROENCEPHALOGRAM Name: JONAH UPTON Room #: 427-P [facility] IN M.R.#: [id number] Admission: 06/28/17 Attend Phys: Rob Holcomb MD Discharge: 06/30/17 Date of : 53 Report #: [id number] THIS REPORT FOR: //name// CC: Rob Holcomb DATE OF SERVICE: 06/29/2017 This patient has a history of stroke as well as seizures. EEG was done to evaluate that further. EEG was done by placing the electrodes by standard 10-20 system of electrode placement. Both referential and sequential montages were used for recording. Background activity on this patient's EEG on the right side is about 10 Hz and 30 microvolt. It is asymmetrical activity and it is slow on the left side. Photic stimulation is unremarkable. The patient went to sleep that is associated with bilateral slowing and vertex sharp waves. Throughout the record, no active epileptiform activity was noticed. IMPRESSION: This is an abnormal EEG because it is asymmetrical and is slow on the right side. That is a nonspecific abnormality, but typically occurred because of stroke in that region. No active epileptiform activity was noticed. Thank you very much for this referral. <ELECTRONICALLY SIGNED> By: Deejay Ji MD 07/05/17 0944 [id number] 1046 Deejay Ji MD /claire
[~2017-06-28 15:41] MED LIST changes: +ZANAFLEX4 MG PO
[2017-06-28 15:42] VITALS: BP 162/76
[2017-06-28 16:04] LABS: ABSOLUTE NEUTROPHILS 3.8 thou/uL (1.4-8.2); BASOPHILS 1.2 % (0.0-2.0); EOSINOPHILS 2.7 % (0.0-3.0); HEMATOCRIT 38.8 % (42.0-52.0); HEMOGLOBIN 13.1 gm/dL (14.0-18.0); LYMPHOCYTES 28.4 % (24.0-44.0); MANUAL DIFF NO; MCH 30.5 pg (26.0-34.0); MCHC 33.7 g/dL (28.0-37.0); MCV 90.5 fL (80.0-100.0); MONOCYTES 7.6 % (1.0-8.0); PLATELET COUNT 267 thou/uL (150-400); POLYS 60.1 % (36.0-66.0); RBC 4.29 mil/uL (4.50-6.00); RDW 15.1 % (10.5-14.5); WBC 6.3 thou/uL (4.0-11.0)
[2017-06-28 16:23] LABS: CALCIUM 9.5 mg/dL (8.5-10.1); POTASSIUM 4.6 mmol/L (3.5-5.1)
[2017-06-28 16:26] LABS: PROTIME 20.7 Seconds (9.3-11.4)
[2017-06-28 16:28] LABS: TROPONIN-I < 0.04 ng/mL (<0.06)
[2017-06-28 17:03] LABS: URINE BILIRUBIN NEGATIVE (Negative); URINE BLOOD TRACE (Negative); URINE COLOR YELLOW; URINE GLUCOSE-RANDOM* NEGATIVE (Negative); URINE KETONES NEGATIVE (Negative); URINE LEUKOCYTES-REFLEX NEGATIVE (Negative); URINE PROTEIN (DIPSTICK) NEGATIVE (Negative); URINE UROBILINOGEN 0.2 E.U./dl (0.2-1.0)
[2017-06-28 18:08] VITALS: BP 162/76
[2017-06-28 18:15] VITALS: BP 143/83
[2017-06-28 20:45] VITALS: BP 139/73
[2017-06-29 04:23] VITALS: BP 108/63
[2017-06-29 05:40] LABS: INR 2.3; PROTIME 23.6 Seconds (9.3-11.4)
[2017-06-29 08:00] VITALS: BP 121/74
[2017-06-29 19:27] VITALS: BP 76/45
[2017-06-30 03:27] VITALS: BP 151/116
[2017-06-30 08:40] VITALS: BP 100/52
== END 2017-06-30 15:10 | DRG 65 ==
LOC: ER 15:41 → EROBS 17:39 → 4E 17:39
PROVIDERS: Family Medicine; Physician Assistant
DX: I63.9 Cerebral infarction, unspecified (principal); G81.91 Hemiplegia, unspecified affecting right dominant side; D68.9 Coagulation defect, unspecified; I10 Essential (primary) hypertension; Z96.651 Presence of right artificial knee joint; Z87.891 Personal history of nicotine dependence; F41.9 Anxiety disorder, unspecified; G47.00 Insomnia, unspecified; W18.39XA Other fall on same level, initial encounter; M25.572 Pain in left ankle and joints of left foot; M25.571 Pain in right ankle and joints of right foot; F31.9 Bipolar disorder, unspecified; Z95.2 Presence of prosthetic heart valve; Z79.899 Other long term (current) drug therapy; M19.90 Unspecified osteoarthritis, unspecified site; Z79.82 Long term (current) use of aspirin; Z79.01 Long term (current) use of anticoagulants; Y93.89 Activity, other specified; Y92.89 Other specified places as the place of occurrence of the external cause; Y99.8 Other external cause status; Z23 Encounter for immunization
CPT/HCPCS: 10084

== ENCOUNTER → 2019-01-04 | Outpatient (CLI) | payer OTHER, BC | LOC: NUC 11:47 | DX: M81.0 Age-related osteoporosis without current pathological fracture (principal); Z88.8 Allergy status to other drugs, medicaments and biological substances ==

== ENCOUNTER → 2019-02-22 | Outpatient (CLI) | payer OTHER, BC | LOC: RAD 14:27 | DX: M25.561 Pain in right knee (principal); M79.604 Pain in right leg; Z96.651 Presence of right artificial knee joint ==

== ENCOUNTER 2019-05-21 00:43 | Inpatient (IN) | payer OTHER, BC ==
[~2019-05-21] VITALS: Ht 170.2 cm; Wt 80.3 kg
[~2019-05-21 00:43] MED LIST changes: +DURAGESIC1 EAC4 TRANSDERM; -FENTANYL 1100 MCG/HR TOP
[2019-05-21 00:44] VITALS: BP 133/56
[2019-05-21] MEDS ORDERED: BACLOFEN 10MG T10 MG PO (00:50)
[2019-05-21] MEDS ORDERED: BISACODYL10 MG RECTAL (00:51)
[2019-05-21] MEDS ORDERED: CALCIUM 500 +1 EAC6 PO (00:52)
[2019-05-21] MEDS ORDERED: COUMADIN 4 MG TA4 M1 PO (00:54)
[2019-05-21] MEDS ORDERED: DULCOLAX STOOL100 M1 PO (00:54)
[2019-05-21] MEDS ORDERED: DULOXETINE HCL60 MG PO (00:55)
[2019-05-21] MEDS ORDERED: MIRALAX17 GM PO (01:17)
[2019-05-21] MEDS ORDERED: LIDODERM1 EACH TOP ×2 (01:22→14:42)
[2019-05-21] MEDS ORDERED: ZOFRAN4 MG PO (01:23)
[2019-05-21] MEDS ORDERED: TYLENOL325 MG PO (01:25)
[2019-05-21] MEDS ORDERED: PERCOCET 5-3251 EACH PO (01:26)
[2019-05-21 01:28] LABS: ABSOLUTE NEUTROPHILS 4.5 thou/uL (1.4-8.2); BASOPHILS 0.8 % (0.0-2.0); EOSINOPHILS 2.9 % (0.0-3.0); HEMATOCRIT 37.9 % (42.0-52.0); HEMOGLOBIN 12.2 gm/dL (14.0-18.0); LYMPHOCYTES 23.9 % (24.0-44.0); MCH 28.8 pg (26.0-34.0); MCHC 32.1 g/dL (28.0-37.0); MCV 89.7 fL (80.0-100.0); MONOCYTES 7.2 % (1.0-8.0); PLATELET COUNT 257 thou/uL (150-400); POLYS 65.2 % (36.0-66.0); RBC 4.23 mil/uL (4.50-6.00); RDW 15.3 % (10.5-14.5); WBC 6.9 thou/uL (4.0-11.0)
[2019-05-21 01:33] LABS: CALCIUM 9.3 mg/dL (8.5-10.1); POTASSIUM 4.4 mmol/L (3.5-5.1)
[2019-05-21 01:40] LABS: ALBUMIN 3.8 g/dL (3.4-5.0); TOTAL BILIRUBIN 0.6 mg/dL (<0.1-1.0); TOTAL PROTEIN 8.1 g/dL (6.4-8.2)
[2019-05-21 02:11] VITALS: BP 133/56
--- NOTE | 2019-05-21 02:39 | NUR ---
UPDATED ON PLAN FOR ADMISSION
[2019-05-21 02:45] VITALS: BP 150/60
[2019-05-21 07:30] VITALS: BP 118/49
--- NOTE | 2019-05-21 08:06 | NUR ---
Pt arrived on unit at 0240 via cart accompanied by staff.A/OX3,has expressive aphasia but able to make needs known. contacted at night for sleep aid and will round on pt this morning for other orders. Samantha contacted at 0800 for admission questions states she'll be here today to see pt concerned about discharge planning informed case management will contact her for updates and appreciated call. Will sign paperwork when she gets here. Fall precautions implemented.
[2019-05-21 15:50] VITALS: BP 116/68
[2019-05-21 19:16] VITALS: BP 91/50
--- NOTE | 2019-05-21 19:16 | EKG ---
[address] [place] [address] ELECTROCARDIOGRAM REPORT Name: JONAH UPTON Room #: 434-P ADM IN M.R.#: [id number] Admission: 05/21/19 Attend Phys: Rob Holcomb MD Discharge: Date of : 53 Report #: [id number] THIS REPORT FOR: //name// [facility] ED Test Date: 2019-05-21 Test Time: 00:53:06 Pat Name: JONAH UPTON Department: Room: 434 Gender: M High Worker: mari : 1955 Requested By: Jesse Medrano Order Number: [id number] MD: Filemon Freedman Measurements Intervals [place] Rate: 65 P: 28 CT: 164 QRS: -33 QRSD: 149 T: 22 QT: 408 QTc: 425 Interpretive Statements Sinus rhythm Ventricular premature complex Right bundle branch block Compared to ECG 06/28/2017 15:41:29 No significant changes Electronically Signed On 05-21-2019 19:16:39 GRANULIZING MACHINE OPERATOR by Filemon Freedman [email or web address] <ELECTRONICALLY SIGNED> By: Filemon Freedman MD, [facility] 05/21/196 005 Filemon Freedman MD, FAC /EPI
--- NOTE | 2019-05-21 19:45 | NUR ---
ASSUMED CARE OF PATIENT AT 0715, PATIENT ALERT AND ORIENTED 2-3. PATIENT HAS EXPRESSIVE APHASIA. PATIENT C/O PAIN WITH BACK AND RIGHT KNEE. PATIENT RECEIVED NEW ORDER FOR OXYCODONE WHICH WAS GIVEN THIS SHIFT, ALONG WITH HYDROCODONE, PATIENT ALSO HAS FENTANYL PATCH TO LEFT BACK IN PLACE. PATIENT IS ASSIST WITH MEALS. PATIENT ON BEDREST, PT/OT ORDERS RECEIVED LATE IN THE SHIFT. PATIENT VOIDS PER URINAL. BROUGHT IN BACK BRACE AND RIGHT LEG BRACE. WILL CONTINUE TO MONITOR.
[2019-05-21 21:38] LABS: URINE BILIRUBIN NEGATIVE (Negative); URINE BLOOD NEGATIVE (Negative); URINE CLARITY CLEAR; URINE COLOR YELLOW; URINE GLUCOSE-RANDOM* NEGATIVE (Negative); URINE KETONES TRACE (Negative); URINE LEUKOCYTES-REFLEX NEGATIVE (Negative); URINE NITRITE-REFLEX NEGATIVE (Negative); URINE PROTEIN (DIPSTICK) NEGATIVE (Negative); URINE SPECIFIC GRAVITY 1.015 (1.005-1.035)
--- NOTE | 2019-05-22 04:34 | NUR ---
Assumed pt care at 1900. Pt A/OX3-4, has expressive aphasia but able to make needs known. C/o back/right knee pain medicated per EMAR with relief reported. UA obtained at HS and negative. Voiding via urinal at night. VSS. Pt looking forward to work with PT today. Fall precautions in place,resting queitly at this time will continue to monitor pt.
[2019-05-22 08:14] VITALS: BP 93/45
--- NOTE | 2019-05-22 14:27 | NUR ---
PT ADMITTED RELATED TO GENERALIZED WEAKNESS. CM REVIEWED CHART AND SPOKE WITH CARE TEAM. CM MET WITH PT AT BEDSIDE YESTERDAY AND PT WASN'T ABLE TO ANSWER ASSESSMENT QUESTIONS BUT ASKED THAT CM CALL HIS . CM SPOKE WIHT BY PHONE. SHE INDICATED THAT PT HAD BEEN HOME A WEEK FROM [facility] AND THAT PT WAS SUPPOSED TO HAVE COME TO [facility] FROM THERE BUT THAT THEY DIDN'T HAVE A BED. SHE INDICATED THAT PT WAS TO HAVE REPLACED BY [facility] BUT THAT NO ONE HAD CONTACTED THEM OF HIS ADMISSION. SHE INDICATED THAT PT HAD BEEN USING A GAIT BELT, FWW, AND 4 PRONG CANE TO ASSIST WITH MOBILITY. SHE INDICATED THAT PT HAD BEEN WALKING SHORT DISTANCES AT [facility]. SPOUSE INDICATED THAT SHE HADN'T BEEN ABLE TO CARE FOR PT JUST PRIOR TO ADMISSION. CM TO FOLLOW INDICATED WITH DC PLANNING.
[2019-05-22 15:47] LABS: INR 1.7; PROTIME 18.1 Seconds (9.3-11.4)
[2019-05-22 17:36] VITALS: BP 77/50
[2019-05-22 17:37] VITALS: BP 77/44
[2019-05-22 17:38] VITALS: BP 100/39
--- NOTE | 2019-05-22 18:18 | NUR ---
ASSUMED CARE OF PATIENT AT 0715, PATIENT ALERT AND ORIENTED. C/O BACK PAIN AND KNEE PAIN, PATIENT HAS RECEIVED OXYCODONE 1 TABLET AND HUDROCODONE 1 TABLET THIS SHIFT. PATIENT WORKED WITH PT/OT TODAY, UP TO THE CHAIR X 1 TODAY. PATIENT USES BACK BRACE AND RIGHT LEG BRACE WHEN UP. PATIENT HAS LEFT AC IV IN PLACE, FLUSHED AND REMAINS PATENT. THIS RN NOTIFIED DR CAMPOS OF B/P LOW 77/50 77/4, AND 100/39, RECEIVED ORDER FOR 500CC NS BOLUS X 1. WILL CONTINUE TO MONITOR.
[2019-05-22 19:13] VITALS: BP 95/50
[2019-05-22 20:26] VITALS: BP 95/50
--- NOTE | 2019-05-23 01:10 | NUR ---
ASSUMED CARE OF PATIENT AT 1999. ASSESSMENT CHARTED. MEDICATION GIVEN PER SEP. VS ARE WITHIN PATIENT BASELINE. ORDERED FLUID BOLUS FOR BP MANAGEMENT;CURRENTLY INFUSING. PATIENT C/O PAIN AT KNEE AND BACK. PRN PAIN MEDS GIVEN. PATIENT IS A&OX4 W SOME EXPRESSIVE APHASIA S/T PAST CVA. PATIENT USED BEDPAN THIS SHIFT AND R SIDED WEAKNESS IS NOTED. PATIENT ALSO USED URINAL TO VOID THIS SHIFT. PER CM, PATIENT TO STEP DOWN TO [facility]. PATIENT VOICES NO OTHER NEEDS AT THIS TIME. FALL PRECAUTIONS IN PLACE. WILL CONTINUE TO MONITOR AND FOLLOW POC.
[2019-05-23 05:40] VITALS: BP 94/54
[2019-05-23 06:59] VITALS: BP 96/52
--- NOTE | 2019-05-23 14:48 | NUR ---
CM MET WITH PT AND SPOUSE AT BEDSIDE THIS DAY. SPOUSE ASKED THAT REFERRAL BE SENT TO [facility]. REFERRAL SENT. CM REACHED OUT TO THEIR LIAISON RHIANNON AND SHE INDICATED THEY DIDN'T HAVE ANY BEDS. CM TO REACH BACK OUT TO SPOUSE TO ASK FOR ALTERNATIVES. CM TO FOLLOW INDICATED WITH DC PLANNING.
[2019-05-23 15:15] VITALS: BP 126/75
--- NOTE | 2019-05-23 15:21 | NUR ---
FAXED REFERRAL TO [facility] RECEIVED CONFIRMATION AND SPOKE WITH RHIANNON IN ADM SHE WILL REVIEW. DP TO FOLLOW.
--- NOTE | 2019-05-23 18:21 | NUR ---
PT RESTING IN BED EATING DINNER AT BEDSIDE. PT W/O PAIN OR RESP DISTRESS.
[2019-05-23 19:25] VITALS: BP 94/36
--- NOTE | 2019-05-24 03:06 | NUR ---
ASSUMED CARE OF PT @1900 PT ASSESSED AT START OF SHIF WITH C/O PAIN IN RT KNEE AND BACK PAIN MEDS GIVEN SEE EMAR. PT A&OX3 WITH FORGETFULLNESS AND EXPRESSIVE APHASIA ABLE TO LET NEEDS KNOWN. EVENING MEDS GIVEN WITH SIPS OF WATER ONE AT A TIME. PERIPHERAL BOOTS ON BLE. URINAL AT BEDSIDE. CALL LIGHT WITHIN REACH AND FALL PREC IN PLACE. WILL CONT WITH POC TILL EOS.
[2019-05-24 05:15] VITALS: BP 122/72
[2019-05-24 08:48] VITALS: BP 86/40
--- NOTE | 2019-05-24 09:12 | NUR ---
PT RESTING IN BED TOOK AM MEDS ATE BREAKFAST. PT GIVEN PRN PAIN MED FOR RIGHT KNEE PAIN.
--- NOTE | 2019-05-24 13:53 | NUR ---
[facility] INDICATED THEY AREN'T ABLE TO ACCEPT PT UPON DC. CM CALLED AND NOTIFIED PT'S SPOUSE AND SHE WAS RECEPTIVE TO [facility] ASSESSING FOR POSSIBLE ADMISSION. MARTA AND DR. RAMEY TO DISCUSS. CM ASKED THAT PT'S SPOUSE HAVE SKILLED BACK UP SELECTED IN THE EVENT PT ISN'T APPROVED.
--- NOTE | 2019-05-24 14:52 | NUR ---
I have reviewed the documentation by ALEX BOOKER from 05/24/19 to 05/24/19 and I concur with it. KEREN WILEY
[2019-05-24 15:42] VITALS: BP 125/86
--- NOTE | 2019-05-24 15:42 | NUR ---
PATIENT SEEN BY MARTA RICKS NP WITH DR. RAMEY. PATIENT IS NOT A CANDIDATE FOR ACUTE REHAB DUE TO NO MEDICAL COMPLEXITY. SOCAIL WORKER INFORMED. THANK YOU FOR THIS REFERRAL.
--- NOTE | 2019-05-24 16:31 | NUR ---
[facility] CAN'T ACCEPT PT. CM NOTIFIED PT AND DR. CAMPOS. THEY ASKED THAT REFERRALS BE SENT TO [facility], [facility], AND [facility] FOR [facility]VIEW FOR SKILLED POST ACUTE CARE STAY. DC [employer] INSTRUCTOR FAXING REFERRALS. MARIO INDICATED THAT PT IS READY EARLY TOMORROW. CALL ADMISSIONS AT [facility] OVER WEEKEND AT FAX . CALL [facility] AT . CALL [facility] AT . CM TO FOLLOW INDICATED WITH DC PLANNING.
--- NOTE | 2019-05-24 16:55 | NUR ---
FAXED REFERRAL TO [facility] RECEIVED CONFIRMATION AND LEFT MSG WITH CHANDAN IN ADM THAT PT IS DC READY. FAXED REFERRAL TO [facility] RECEIVED CONFIRMATION AND LEFT MSG WITH WADE THAT PT IS DC READY, FAXED REFERRAL TO [facility] RECEIVED CONFIRMATION AND LEFT MSG WITH BOBO IN ADM THAT PT IS DC READY. DP TO FOLLOW.
[2019-05-24 19:20] VITALS: BP 85/40
[2019-05-25 00:55] VITALS: BP 133/64
--- NOTE | 2019-05-25 03:28 | NUR ---
ASSUMED PT CARE @1900 PT ASSESSED AT START OF SHIFT. A&OX3, EXPRASSIVE APHASIA NOTED. TAKES PILLS ONE @ A TIME WITH SIPS OF WATER. PAIN MEDS GIVEN FOR RT KNEE AND BACK PAIN. FOAM BOOTS ON BLE. PT HAD A BM THIS SHIFT. PT STILL AWAITING AUTH. FALL PREC IN PLACE AND PT CALLS TO LET NEEDS KNOWN WILL CONT WITH POC TILL EOS.
[2019-05-25 04:25] VITALS: BP 90/60
[2019-05-25 08:23] VITALS: BP 95/62
[2019-05-25 14:58] LABS: PROTIME 29.5 Seconds (9.3-11.4)
[2019-05-25 14:59] LABS: INR 2.8
[2019-05-25 15:49] VITALS: BP 76/47
[2019-05-25 16:08] LABS: HEMATOCRIT 32.3 % (42.0-52.0); HEMOGLOBIN 10.5 gm/dL (14.0-18.0); MCH 29.2 pg (26.0-34.0); MCHC 32.5 g/dL (28.0-37.0); MCV 89.8 fL (80.0-100.0); RBC 3.6 mil/uL (4.50-6.00); RDW 14.9 % (10.5-14.5); WBC 6.8 thou/uL (4.0-11.0)
[2019-05-25 16:10] LABS: CALCIUM 9.8 mg/dL (8.5-10.1); CREATININE 0.9 mg/dL (0.7-1.3); POTASSIUM 4.4 mmol/L (3.5-5.1)
--- NOTE | 2019-05-25 17:21 | NUR ---
ASSUMED CARE OF PATIENT AT 0715, PATIENT ALERT AND ORIENTED X 3, CAN BE FORGETFUL. PATIENT C/O PAIN WITH BACK AND RIGHT KNEE, PATIENT RECEIVED HYDROCODONE X 1 AND OXYCODONE X 2 THIS SHIFT. PATIENT LWFR AC IV, FLUSHED WITH NS AND REMAINS PATENT. PATIENT VOIDS PER URINAL. PO MEDS 1 AT A TIME. PATIENT HAS EXPRESSIVE APHASIA, BUT MANAGES TO MAKE NEEDS KNOWN. RIGHT SIDE WEAKNESS DUE TO STROKE RIGHT SIDED. B/P 76/47, THIS RN NOTIFIED DR CAMPOS, RECEIVED ORDER FOR NS 500CC BOLUS X 1, AND LABS BMP AND CBC FOR TODAY. PATIENT HAS FENTANYL PATCH 25MCG ON LEFT UPPER CHEST. WILL CONTINUE TO MONITOR.
[2019-05-25 19:55] VITALS: BP 117/70
--- NOTE | 2019-05-26 04:49 | NUR ---
PATIENT ALERT AND ORIENTED X4. C/O PAIN TO HIS BACK AND LEFT LEG. PATIENT WILL HAVE RECEIVED PAIN MEDICATION AND WITHIN AN HOUR ASK FOR MORE. BLOOD PRESSURE DURING THE NIGHT HAS BEEN ADEQUATE AFTER A BOLUS WAS GIVEN DURING THE AM SHIFT FOR LOW BP. VOIDING PER URINAL. BOOTS ON FEET AND ELEVATED. THIS NURSE SPOKE TO HIS (DONALD) WHO STATES THAT THE PATIENT HAS "CHANGED" WITHIN THE LAST WEEK OR TWO. ALSO STATED THAT HE ONLY TAKES OXYCODONE FOR PAIN WHEN HE IS AT HOME AND AT [facility] - HERE HE ALSO TAKES HYDROCODONE. THIS NURSE ENCOURAGED HER TO MAKE HER CONCERNS KNOWN WITH THE DOCTOR AND/OR HIS NURSE WHOM SHE HAS A DIRECT NUMBER TO. PATIENT IS RESTING AT TIME OF NOTE. WILL MONITOR.
[2019-05-26 08:43] VITALS: BP 119/59
--- NOTE | 2019-05-26 16:01 | NUR ---
PT A&OX4, IV INTACT IN L AC. TRANSFERS WITH MAX ASSIST. PT HAVING R KNEE AND BACK PAIN. TOLERATING PO WELL, ALTERNATING BETWEEN PO PAIN MEDS. CALL LIGHT W/I REACH. WILL CONT POC.
[2019-05-26 17:52] VITALS: BP 100/56
[2019-05-26 19:15] VITALS: BP 130/60
--- NOTE | 2019-05-27 00:01 | NUR ---
PY C/O PAIN ON HIS R ANKLE AND BACK,MANAGED WITH PO MED.PT WITH R SIDED WEAKNESS,REPOSITIONED WHILE IN BED.PT'S HERE TO VISIT,UPDATED ON PT'S STATUS.PT HAD A BIG BM THIS SHIFT.URINAL AT BEDSIDE.PT RESTING IN BED AT THIS TIME.FALL PRECAUTIONS IN PLACE,CALL LIGHT WITHIN REACH.
[2019-05-27 04:40] VITALS: BP 115/73
[2019-05-27 08:22] VITALS: BP 148/66
--- NOTE | 2019-05-27 08:50 | NUR ---
Received report from preceding nurse and assumed care of patient.
--- NOTE | 2019-05-27 09:50 | NUR ---
Pt taken to radiology by transporter for xrays. Pt premedicated for pain prior to leaving -see emar.
--- NOTE | 2019-05-27 16:47 | NUR ---
I have reviewed the documentation by ALEX BOOKER from 05/27/19 to 05/27/19 and I concur with it. KEREN WILEY
[2019-05-27 17:27] VITALS: BP 129/70
--- NOTE | 2019-05-27 19:30 | NUR ---
Pt up in chair all afternoon. Discharge orders received today. excellence manager working on obtaining placement. No facility for transfer located so pt will remain in the hospital tonight. Report given to RN's assuming care.
[2019-05-27 21:17] VITALS: BP 130/49
[2019-05-28 04:57] VITALS: BP 148/71
--- NOTE | 2019-05-28 05:47 | NUR ---
PT PRESENTS ALERT AND ORIENTED X4. PT MAX ASSIST. PT REPORTS PAIN 7/10 IN RIGHT LEG, RIGHT ARM, AND RIGHT ANKLE. OXYCODONE PRN Q4H PARTIALLY EFFECTIVE, PT AWAKENING FROM SLEEP DUE TO PAIN. PT ABLE TO SHIFT HISSELF IN BED. NO BM THIS SHIFT, URINAL AT BEDSIDE. PT REQUESTS SHOWER IN THE MORNING. PT NOTED TO HAVE BRIGHT AFFECT. PT APHASIC, RESPONDS TO PROMPTS APPROPRIATELY. ENCOURAGED TO CONTACT STAFF FOR ALL CONCERNS. BED ALARM ON, BED IN LOWEST POSITION, CALL LIGHT WITHIN REACH.
[2019-05-28 07:27] VITALS: BP 150/80
--- NOTE | 2019-05-28 10:40 | NUR ---
PT CARE ASSUMED 0700. A&Ox4. CALL LIGHT IN REACH. ICE PACKS APPLIED TO R. LEG AND KNEE. REDNESS NOTED ON R. KNEE. PT. USES URINAL AND BEDPAN. PT HAS RIGHT SIDED WEAKNESS. AWAITING PLACEMENT FOR DISCHARGE
--- NOTE | 2019-05-28 12:58 | NUR ---
PT HAS BEEN ACCEPTED AT [facility]. PT IT TO DISCHARGE THERE AT 1600 VIA WHEELCHAIR VAN. CM NOTIFIED PT'S SPOUSE. SHE IS AWARE AND AGREEABLE. NO OTHER CM INTERVENTION INDICATED. ORDERS FAXED AND REPORT TO BE CALLED TO . CHART COPY ORDERED. NO OTHER CM INTERVENTION INDICATED. CASE CLOSED.
== END 2019-05-28 16:25 | DRG 948 ==
LOC: ER 00:43 → EROBS 02:10 → 4S 02:10
PROVIDERS: Emergency Medicine; ADMIT Family Medicine
DX: R53.1 Weakness (principal); R47.01 Aphasia; I69.351 Hemiplegia and hemiparesis following cerebral infarction affecting right dominant side; R53.81 Other malaise; I10 Essential (primary) hypertension; F31.9 Bipolar disorder, unspecified; G47.00 Insomnia, unspecified; M19.90 Unspecified osteoarthritis, unspecified site; F41.9 Anxiety disorder, unspecified; Z96.651 Presence of right artificial knee joint; I95.9 Hypotension, unspecified; M25.571 Pain in right ankle and joints of right foot; M17.11 Unilateral primary osteoarthritis, right knee; M16.11 Unilateral primary osteoarthritis, right hip; Z95.2 Presence of prosthetic heart valve; Z79.899 Other long term (current) drug therapy; Z79.01 Long term (current) use of anticoagulants; Z87.891 Personal history of nicotine dependence; Z91.81 History of falling
CPT/HCPCS: 10195

== ENCOUNTER 2020-03-27 19:40 | Emergency (ER) | payer OTHER, BC ==
[~2020-03-27 19:40] MED LIST changes: +BACLOFEN 10MG T10 MG PO; +BISACODYL10 MG RECTAL; +CALCIUM 500 +1 EAC6 PO; +DULCOLAX STOOL100 M1 PO; +DULOXETINE HCL60 MG PO; +LIDODERM1 EACH TOP; +PERCOCET 5-3251 EACH PO; +ZOFRAN4 MG PO
[2020-03-27 19:51] VITALS: BP 145/73
== END 2020-03-27 20:26 | disposition home or self-care (01) ==
LOC: ER 19:40
DX: M54.5 Low back pain (principal); I10 Essential (primary) hypertension; Z76.0 Encounter for issue of repeat prescription; Z79.01 Long term (current) use of anticoagulants; Z79.899 Other long term (current) drug therapy; Z87.891 Personal history of nicotine dependence

== ENCOUNTER 2021-02-07 11:48 | Inpatient (IN) | payer OTHER, BC ==
[~2021-02-07] VITALS: Ht 167.6 cm; Wt 77.2 kg
[2021-02-07 11:49] VITALS: BP 138/84
[2021-02-07 15:16] LABS: ABSOLUTE NEUTROPHILS 3.3 thou/uL (1.4-8.2); BASOPHILS 0.6 % (0.0-2.0); EOSINOPHILS 2.6 % (0.0-3.0); HEMATOCRIT 34.5 % (42.0-52.0); HEMOGLOBIN 11.3 gm/dL (14.0-18.0); LYMPHOCYTES 28.7 % (24.0-44.0); MCH 28.8 pg (26.0-34.0); MCHC 32.8 g/dL (28.0-37.0); MONOCYTES 9.5 % (1.0-8.0); PLATELET COUNT 214 thou/uL (150-400); POLYS 58.6 % (36.0-66.0); RBC 3.92 mil/uL (4.50-6.00); RDW 14.7 % (10.5-14.5); WBC 5.7 thou/uL (4.0-11.0)
[2021-02-07 15:26] LABS: CALCIUM 8.9 mg/dL (8.5-10.1); CREATININE 1.3 mg/dL (0.7-1.3)
[2021-02-07 15:32] LABS: ALBUMIN 3.7 g/dL (3.4-5.0); TOTAL BILIRUBIN 0.6 mg/dL (0.2-1.0); TOTAL PROTEIN 7.2 g/dL (6.4-8.2)
[2021-02-07 19:09] VITALS: BP 122/63
[2021-02-07 20:20] VITALS: BP 186/96
[2021-02-07 23:54] VITALS: BP 146/73
--- NOTE | 2021-02-08 01:41 | NUR ---
PT ARRIVED FROM ER @1999 A&O3 HX OF CVA AND RIGHT SIDE WEAKNESS. BY BEDSIDE ADMISSION DONE AND PT ORIENTED TO THE UNIT. MED REC REVIEWED WITH . PT REQUEST FOR AMBIEN DIRECTOR MEETINGS NOTIFIED AND ORDERS RECIEVED. IV INTACT AND FLUIDS INFUSING. PT HAS FOOT BRACE ON RT FOOT. NPO AT MIDIGHT FOR POSSIBLE KYPHOPLASTY. MORPHINE GIVEN FOR PAIN. URINAL AT BEDSIDE. FALL PREC IN PLACE AND CALL LIGHT AT REACH WILL CONT TO MONITOR.
[2021-02-08 03:30] VITALS: BP 162/83
[2021-02-08 07:15] VITALS: BP 177/89
[2021-02-08 09:08] LABS: INR 1.7; PROTIME 18.1 Seconds (10.5-12.1)
--- NOTE | 2021-02-08 09:30 | NUR ---
Chart review. Cm visited with rochelle at bedside. Cm cont to wear face mask and shield during visit. Rochelle diff with verbal communication r/t past hx of stroke. He was talking with on phone, he had cm say hi on the home. rigoberto via phone call, she stated she would be up later to visit and he does have diff with communication and his needs. Rochelle live home with , in house. no stairs that he has to do. Has walker, grab bars, shower bench, and 4 prong cane. manage his medications. Been to [facility]n acute rehab, [facility]. PCP Dr. Holcomb. Fall with fx back, possible will need kyphoplasty. Will cont following as needed for dc needs.
--- NOTE | 2021-02-08 09:50 | EKG ---
[address] [address] ELECTROCARDIOGRAM REPORT Name: JONAH UPTON Room #: 446- ADM IN M.R.#: [id number] Admission: 02/07/21 Attend Phys: Rob Holcomb MD Discharge: Date of : 53 Report #: [id number] [facility] ED Test Date: 2021-02-07 Test Time: 11:57:30 Pat Name: JONAH UPTON Department: Room: 446 Gender: M Parboiler: NILSA : 1955 Requested By: Rob Holcomb Order Number: [id number] MD: Dileep Maki Measurements Intervals [place] Rate: 67 P: 0 VA: 180 QRS: -25 QRSD: 146 T: 10 QT: 432 QTc: 456 Interpretive Statements Sinus rhythm Ventricular premature complex Right bundle branch block Compared to ECG 05/21/2019 00:53:06 No significant changes Electronically Signed On 02-08-2021 9:49:49 CDT by Dileep Maki [email or web address] <ELECTRONICALLY SIGNED> By: Dileep Maki MD, [facility] 02/08/21 0949 [id number] Dileep Maki MD, FACC /EPI
[2021-02-08 16:20] VITALS: BP 163/89
--- NOTE | 2021-02-08 18:48 | NUR ---
PATIENT ALERT AND ORINTED X3, ON ROOM AIR, BEDREST, MRI DONE TODAY, PAIN MEDICATION GIVEN PER MAR, TOLERATING DIET WELL, VITAL SIGNS STABLE, AND AFBREIELE. CALL LIGHT WITH IN REACH, WILL COTNINUE TO MONITOR.
[2021-02-08 19:18] VITALS: BP 152/98
[2021-02-09 03:12] VITALS: BP 121/53
[2021-02-09 04:21] VITALS: BP 92/61
[2021-02-09] MEDS ORDERED: ZANAFLEX4 MG PO (07:26)
[2021-02-09 07:30] VITALS: BP 127/79
[2021-02-09] MEDS ORDERED: DURAGESIC1 EAC4 TRANSDERM (07:34)
[2021-02-09] MEDS ORDERED: PERCOCET PO (07:34)
--- NOTE | 2021-02-09 08:03 | NUR ---
pain controlled this shift. fall precaution in place. patient in bed asleep at this time breathing regular and unlaboured.
[2021-02-09 08:18] LABS: HEMATOCRIT 33.9 % (42.0-52.0); HEMOGLOBIN 11.1 gm/dL (14.0-18.0); MCH 29.3 pg (26.0-34.0); MCHC 32.8 g/dL (28.0-37.0); MCV 89.2 fL (80.0-100.0); RBC 3.81 mil/uL (4.50-6.00); RDW 15.2 % (10.5-14.5); WBC 6.1 thou/uL (4.0-11.0)
[2021-02-09 08:30] LABS: CALCIUM 8.6 mg/dL (8.5-10.1); CREATININE 1.6 mg/dL (0.7-1.3); POTASSIUM 4.7 mmol/L (3.5-5.1)
--- NOTE | 2021-02-09 09:24 | NUR ---
ON-GOING ASSESSMENT: CM REVIEWED CHART AND MET WITH PATIENT AT THE BEDSIDE. ATTENDING IS RECOMMENDING SNF AT DISCHARGE. CM SPOKE WITH THIS WITH PATIENT AND HIS DONALD AND THEY REQUEST A REFERRAL TO [facility] WHERE HE HAS BEEN IN THE PAST. CM NOTIFIED LIAZITA SIMPSON WHO REPORTS THEY HAVE A BED OPEN AND REFERRAL WAS FAXED. AWAITING INPUT FROM FACILITY AT THIS TIME. CM WILL CONTINUE TO FOLLOW WELL AWAIT THERAPY EVALS.
--- NOTE | 2021-02-09 11:27 | NUR ---
PATIENT ALERT AND ORINTED X4, ON ROOM AIR, TOLERATING DIET WELL, PAIN MEDICATION GIVEN PER MAR, VITAL SIGNS STABLE, AND AFBRILE. CALL LIGHT WITH IN REACH, WILL CONTINUE TO MONITOR. WAITING ON PLACEMENT FOR DC.
--- NOTE | 2021-02-09 13:22 | NUR ---
ON-GOING ASSESSMENT: CM REVIEWED CHART AND SPOKE WITH PATIENT WELL HIS . PT IS STABLE FOR D/C TO SNF TODAY. CM SPOKE WITH CALVIN ROMERO FROM [facility] WHO REPORTS THEY CAN ACCEPT PATIENT TODAY. CHART COPY WAS ORDERED. CM NOTIFIED PT AND HIS AND THEY ARE AGREEABLE WITH DISCHARGE TODAY. MEDICARE WAIVER IS STILL IN PLACE PER [facility]. CM FAXED DISCHARGE PAPERWORK TO [facility] AND CONFIRMED THEY RECEIVED IT. BEDSIDE RN HAS THE NUMBER FOR REPORT. TRANSPORTATION HAS BEEN ARRANGED FOR 1430. BEDSIDE RN, PTS , AND PT AWARE AND AGREEABLE. PT REPORTS NO FURTHER NEEDS FROM CM PRIOR TO DISCHARGE.
== END 2021-02-09 15:31 | DRG 543 ==
LOC: ER 11:48 → EROBS 15:48 → 4S 15:48
PROVIDERS: Nurse Practitioner; ADMIT Family Medicine; ATTEND Family Medicine
DX: M48.56XA Collapsed vertebra, not elsewhere classified, lumbar region, initial encounter for fracture (principal); I69.351 Hemiplegia and hemiparesis following cerebral infarction affecting right dominant side; N17.9 Acute kidney failure, unspecified; F31.9 Bipolar disorder, unspecified; I10 Essential (primary) hypertension; Z20.822 Contact with and (suspected) exposure to COVID-19; G47.00 Insomnia, unspecified; I45.10 Unspecified right bundle-branch block; M19.90 Unspecified osteoarthritis, unspecified site; F41.9 Anxiety disorder, unspecified; S09.90XA Unspecified injury of head, initial encounter; M17.11 Unilateral primary osteoarthritis, right knee; I48.91 Unspecified atrial fibrillation; M17.0 Bilateral primary osteoarthritis of knee; Z95.2 Presence of prosthetic heart valve; Z87.891 Personal history of nicotine dependence; W18.39XA Other fall on same level, initial encounter; Y93.89 Activity, other specified; Y92.89 Other specified places as the place of occurrence of the external cause; Y99.8 Other external cause status
CPT/HCPCS: 10195